=== PATIENT | male | born 1995 | race Hispanic/Latino ===

== ENCOUNTER 2018-02-14 05:06 | Emergency (ER) | payer SELFPAY ==
[2018-02-14 05:22] VITALS: TEMP 97.5
[2018-02-14 05:44] VITALS: BP 141/97; PULSE 75; RESP 20; O2SAT 100
--- NOTE | 2018-02-14 06:32 | ED PDOC ---
HPI: Psych/Substance Abuse Time Seen by Provider: 02/14/18 05:10 Chief Complaint (Nursing): Psychiatric Evaluation Chief Complaint (Provider): Psychiatric Evaluation History Per: Patient History/Exam Limitations: no limitations Onset/Duration Of Symptoms: Sudden Onset Current Symptoms Are (Timing): Gone Now Additional Complaint(s): 22 year old male with medical history of depression and PTSD, presents to the emergency department for a crisis evaluation after patient became upset and threatened to hurt himself to his girlfriend over the phone. Patient currently denies having suicidal ideation or plan. PMD: none provided Past Medical History Reviewed: Historical Data, Nursing Documentation, Vital Signs Vital Signs: Last Vital Signs Temp 97.5 F L 02/14/18 05:13 Pulse 75 02/14/18 05:44 Resp 20 02/14/18 05:44 BP 141/97 H 02/14/18 05:44 Pulse Ox 100 02/14/18 05:44 - Medical History PMH: Depression, Post Traumatic Stress Disorder - Family History Family History: States: Unknown Family Hx - Allergies Allergies/Adverse Reactions: Allergies Allergy/AdvReac Type Severity Reaction Status Date / Time No Known Allergies Allergy Verified 02/14/18 05:26 Review of Systems ROS Statement: Except As Marked, All Systems Reviewed And Found Negative Psych: Positive for: Suicidal ideation Physical Exam - Reviewed Nursing Documentation Reviewed: Yes Vital Signs Reviewed: Yes - Physical Exam Appears: Positive for: Non-toxic, No Acute Distress Head Exam: Positive for: ATRAUMATIC Skin: Positive for: Normal Color Eye Exam: Positive for: Normal appearance, EOMI, PERRL Neck: Positive for: Normal, Supple Cardiovascular/Chest: Positive for: Regular Rate, Rhythm Respiratory: Positive for: Normal Breath Sounds. Negative for: Wheezing, Respiratory Distress Gastrointestinal/Abdominal: Positive for: Normal Exam, Soft. Negative for: Tenderness Extremity: Positive for: Normal ROM (upper/lower) Neurologic/Psych: Positive for: Alert, Oriented. Negative for: Motor/Sensory Deficits - ECG O2 Sat by Pulse Oximetry: 100 (RA) Pulse Ox Interpretation: Normal Medical Decision Making Medical Decision Making: Initial Impression: 22 year old male without complaints Initial Plan: * Crisis evaluation Time: 543 --Upon crisis evaluation, patient is medically stable and requires no further treatment in the ED at this time as per Dr. Ramirez. Patient will be discharged home. Counseling was provided and all questions were answered regarding diagnosis. There is agreement to discharge plan. Return if symptoms persist or worsen. Clinical Impression: Adjustment disorder Scribe Attestation: Documented by Rossana Berg, acting as a scribe for Henri Thomas MD. Provider Scribe Attestation: All medical record entries made by the Scribe were at my direction and personally dictated by me. I have reviewed the chart and agree that the record accurately reflects my personal performance of the history, physical exam, medical decision making, and the department course for this patient. I have also personally directed, reviewed, and agree with the discharge instructions and disposition. Disposition - Clinical Impression Clinical Impression: Adjustment disorder - Disposition Disposition Time: 05:45 Condition: STABLE Instructions: Adjustment Disorder Forms: [employer] (Al[place]ian)
== END 2018-02-14 05:44 | disposition home or self-care (01) ==
LOC: H.ER 05:06
DX: F43.20 Adjustment disorder, unspecified (principal); F32.9 Major depressive disorder, single episode, unspecified; F43.10 Post-traumatic stress disorder, unspecified